=== PATIENT | male | born 1985 | race Two or more races ===

== ENCOUNTER 2016-12-05 19:13 | Emergency (ER) | payer OTHER ==
[~2016-12-05] VITALS: Ht 180.3 cm; Wt 102.1 kg
[2016-12-05] MEDS ORDERED: IBUP800T23 PO (19:44)
[2016-12-06] MEDS ORDERED: LIDOCAINE 1% MDV 20ML VIAL As Ordered ONE (00:35)
[2016-12-06] MEDS ORDERED: KEFL500C7 PO (01:19)
[2016-12-06 01:30] VITALS: BP 135/90
[2016-12-06] MEDS ORDERED: CEPHALEXIN 500 MG CAP PO ONE (01:30)
[2016-12-06] MEDS ORDERED: LIDOCAINE 1% MDV 20ML VIAL SC ONE (01:45)
== END 2016-12-06 01:37 | disposition home or self-care (01) ==
LOC: M ED 20:37
DX: S61.412A Laceration without foreign body of left hand, initial encounter (principal); W26.0XXA Contact with knife, initial encounter; Y92.019 Unspecified place in single-family (private) house as the place of occurrence of the external cause; Y93.89 Activity, other specified; Y99.8 Other external cause status

== ENCOUNTER 2017-03-08 10:46 | Emergency (ER) | payer OTHER ==
[~2017-03-08] VITALS: Ht 177.8 cm; Wt 108.9 kg
[~2017-03-08 10:46] MED LIST: IBUP1TAB7 PO; KEFL500C17 PO
[2017-03-08] MEDS ORDERED: ONDANSETRON 4MG/2ML VIAL (J2405) IV ONE (12:00)
[2017-03-08] MEDS ORDERED: KETOROLAC 30 MG/ML VIAL (J1885) IV ONE (12:00)
[2017-03-08] MEDS ORDERED: GASTROGRAFIN SOLUTION 30ML (Q9963) PO ONE ×2 (12:15→12:50)
[2017-03-08 13:04] LABS: BASO % 0.2 % (0.0-1.0); EOS # 0.1 K/mm3 (0.0-0.50); EOS % 0.5 % (0.0-3.0); LARGE UNSTAINED CELL # 0.1 K/mm3 (0.0-0.4); LARGE UNSTAINED CELL % 0.5 % (0.0-4.0); LYMPH # 1.4 K/mm3 (1.5-4.5); LYMPH % 7.4 % (24.0-44.0); MEAN CORPUSCULAR HEMOGLOBIN 30.1 pg (27.0-33.0); MEAN CORPUSCULAR HGB CONC 33.1 g/dl (32.0-36.5); MONO # 0.6 K/mm3 (0.0-0.8); MONO % 3.3 % (0.0-5.0); NEUTROPHILS # 15.6 K/mm3 (1.8-7.7); NEUTROPHILS % 88.2 % (36.0-66.0); PLATELET COUNT, AUTOMATED 256 k/mm3 (150-450); RED CELL DISTRIBUTION WIDTH 12.3 % (11.5-14.5); WHITE BLOOD COUNT 17.7 K/mm3 (4.0-10.0)
[2017-03-08 13:05] LABS: ALBUMIN 4.2 GM/DL (3.2-5.2); ALBUMIN/GLOBULIN RATIO 0.95 (1.00-1.93); ALKALINE PHOSPHATASE 85 U/L (45-117); ALT/SGPT 31 U/L (12-78); AMYLASE 84 U/L (25-115); ANION GAP 4 MEQ/L (8-16); AST/SGOT 16 U/L (15-37); BILIRUBIN,DIRECT 0.1 MG/DL (0.0-0.2); BILIRUBIN,TOTAL 0.5 MG/DL (0.2-1.0); BLOOD UREA NITROGEN 9 MG/DL (7-18); CALCIUM LEVEL 9.4 MG/DL (8.5-10.1); CARBON DIOXIDE LEVEL 31 MEQ/L (21-32); CHLORIDE LEVEL 103 MEQ/L (98-107); GLOMERULAR FILTRATION RATE > 60.0 (>60); GLUCOSE, FASTING 89 MG/DL (70-105); SODIUM LEVEL 138 MEQ/L (136-145); TOTAL PROTEIN 8.6 GM/DL (6.4-8.2)
[2017-03-08] MEDS ORDERED: ISOVUE-370 76% 100ML VIAL (Q9967) As Ordered ONE (13:31)
--- NOTE | 2017-03-08 14:09 | REP ---
Clinical: Abdominal pain with nausea vomiting and diarrhea. Technique: Axial contrast enhanced images from the lung bases to the pubic symphysis using oral and 100 ml Isovue 370 intravenous contrast material with coronal and sagittal re-formations. Findings: The colon is fluid-filled and there is a focal rounded area of inflammatory change to the adjacent sigmoid colon (images 93 - 102). Small bowel appears normal. No evidence for bowel obstruction. No free air. No drainable collection/abscess. Liver, spleen, pancreas, gallbladder, bilateral adrenal glands and kidneys are normal. Pelvis demonstrates normal bladder and age appropriate prostate/seminal vesicles. No ascites. No free air. No adenopathy. Vasculature normal. Surrounding musculoskeletal structures are intact. Lung bases are clear. Impression: Findings suggest sigmoid epiploic appendagitis and possible colitis. Signed by Ariel Delacruz MD 03/08/2017 02:00 P
[2017-03-08] MEDS ORDERED: ZOFR4TAB3 PO (14:20)
[2017-03-08] MEDS ORDERED: CIPR-249 PO (14:20)
[2017-03-08] MEDS ORDERED: ULTR50TA8 PO (14:20)
[2017-03-08] MEDS ORDERED: FLAG500T PO (14:20)
[2017-03-08 14:28] VITALS: BP 135/85
== END 2017-03-08 14:28 | disposition home or self-care (01) ==
LOC: M ED 10:46
DX: K52.9 Noninfective gastroenteritis and colitis, unspecified (principal); F17.200 Nicotine dependence, unspecified, uncomplicated
CPT/HCPCS: 74177; 80048; 80076; 81001; 82150; 83690; 85025; 86140; 96374; 96375; 99283; J1885; J2405; Q9963; Q9967